=== PATIENT | male | born 1965 | race Caucasian/White ===

== ENCOUNTER 2020-08-14 19:24 | Inpatient (IN) | payer OTHER, SELFPAY ==
[2020-08-14] MEDS ORDERED: Acetaminophen 500 MG TAB ONE (20:15)
[2020-08-14 20:51] LABS: PTT 33.9 sec (22.9-36.1); Prothrombin Time 13.7 sec (12.0-14.7)
[2020-08-14] MEDS ORDERED: Ondansetron PF 4 MG/2 ML Vial IVP PRN (21:04)
[2020-08-14] MEDS ORDERED: Ondansetron ODT 4 MG TAB PO PRN (21:04)
[2020-08-14] MEDS ORDERED: hydrALAZINE 20 MG/ML VIAL SLOW IVP PRN (21:06)
[2020-08-14] MEDS ORDERED: Acetaminophen 325 MG TAB PO PRN (22:15)
[2020-08-14] MEDS: Lactated Ringer's 1,000 ML IV SCH (23:44)
[2020-08-15 03:11] VITALS: BMI 31.1
[2020-08-15 05:34] LABS: #Eosinphils 0.1 thou/uL (0.0-0.7); #Lymphocytes 2.2 thou/uL (1.20-3.40); #Monocytes 0.6 thou/uL (0.11-0.59); #Neutrophils 5.8 thou/uL (1.40-6.50); %Basophils 0.5 % (0.0-1.0); %Eosinophils 1.3 % (0.0-10.0); %Lymphocytes 25.3 % (21.0-51.0); %Neutrophils 65.9 % (42.0-75.0); Hemoglobin 13.1 g/dL (14.0-18.0); Mean Corpuscular HGB CONC 33.8 g/dL (32.0-36.0); Mean Corpuscular Hemoglobin 30.8 pg (27.0-31.0); Mean Platelet Volume 8.8 fL (7.4-10.4); Platelet Count 200 thou/uL (130-400); RBC Distribution Width 12.5 % (11.5-14.5); Red Blood Cell (RBC) Count 4.27 mill/uL (4.70-6.10); White Blood Cell (WBC) Count 8.8 thou/uL (4.8-10.8)
[2020-08-15] MEDS: Morphine 2 MG/ML VIAL SLOW IVP PRN ×2 (05:49→10:40)
[2020-08-15 05:58] LABS: Anion Gap 13 mmol/L (10-20); BUN (Urea Nitrogen) 12 mg/dL (8.4-25.7); Calc. Creatinine Clearance 138 mL/min (70-130); Calcium 8.7 mg/dL (7.8-10.44); Carbon Dioxide 26 mmol/L (22-29); Chloride 101 mmol/L (98-107); Glucose 91 mg/dL (70-105); Potassium 4.1 mmol/L (3.5-5.1); Sodium 136 mmol/L (136-145)
[2020-08-15] MEDS: Lactated Ringer's 1,000 ML IV SCH (07:50)
[2020-08-15 08:06] LABS: SARS-CoV-2 PCR by NAA Not Detected (NotDetected)
[2020-08-15] MEDS ORDERED: Lidocaine 1% (PF) 30 ML VIAL ONE (08:06)
[2020-08-15] MEDS ORDERED: Fentanyl 100 MCG/2 ML VIAL ONE (08:10)
[2020-08-15] MEDS ORDERED: Midazolam HCl 2 mg/2 ml Vial ONE (08:10)
[2020-08-15] MEDS: Famotidine/PF 20 mg/2ml Vial SLOW IVP SCH ×2 (09:42→19:59)
[2020-08-15] MEDS: Famotidine 20 MG TAB PO SCH ×2 (10:37→19:58)
[2020-08-15] MEDS ORDERED: Iopamidol 370 76% 50 ML VIAL FS ONE (12:49)
[2020-08-15] MEDS: Acetaminophen 325 MG TAB PO PRN (18:58)
[2020-08-15] MEDS ORDERED: FLU VACC QS2020-21(6MOS UP)/PF 60 MCG/0.5 ML SYRINGE IM ONE (21:00)
[2020-08-16] MEDS: Acetaminophen 325 MG TAB PO PRN (08:24)
[2020-08-16] MEDS: Famotidine 20 MG TAB PO SCH ×2 (08:24→19:53)
[2020-08-16] MEDS: Famotidine/PF 20 mg/2ml Vial SLOW IVP SCH ×2 (08:26→19:54)
[2020-08-16] MEDS ORDERED: CEFAZOLIN 2 GM in Premix Bag 1 BAG IVPB SCH (19:15)
[2020-08-17] MEDS: Famotidine/PF 20 mg/2ml Vial SLOW IVP SCH (07:50)
[2020-08-17] MEDS: Famotidine 20 MG TAB PO SCH (07:51)
[2020-08-17] MEDS ORDERED: Sodium Chloride 0.9% 1,000 ML IV SCH (08:00)
[2020-08-17] MEDS: Morphine 2 MG/ML VIAL SLOW IVP PRN (12:15)
[2020-08-17] MEDS ORDERED: Lidocaine 1% w/Epinephrine 1:100K 20 ML VIAL ONE (15:27)
[2020-08-17] MEDS ORDERED: Bupivacaine PF 0.5% 30 ML VIAL ONE (15:27)
[2020-08-17] MEDS ORDERED: Fentanyl 100 MCG/2 ML VIAL ONE ×2 (15:36→16:45)
[2020-08-17] MEDS ORDERED: Midazolam HCl 2 mg/2 ml Vial ONE (15:36)
[2020-08-17] MEDS ORDERED: HYDROmorphone 0.5 MG/0.5 ML SYRINGE ONE (15:37)
[2020-08-17] MEDS ORDERED: Dexamethasone 20 MG/5 ML VIAL ONE (15:45)
[2020-08-17] MEDS ORDERED: Lidocaine 1% PF 5 ML VIAL ONE (15:45)
[2020-08-17] MEDS ORDERED: Ondansetron PF 4 MG/2 ML Vial ONE (15:45)
[2020-08-17] MEDS ORDERED: PROPOFOL 200 MG/20 ML VIAL ONE (15:45)
[2020-08-17] MEDS ORDERED: HYDROcodone/Acetaminophen 5/325 mg Tablet PO PRN ×2 (16:37)
[2020-08-17] MEDS ORDERED: Ibuprofen 600 MG TAB PO PRN (16:37)
[2020-08-17] MEDS ORDERED: Promethazine HCl 25 MG/ML VIAL SLOW IVP PRN (16:41)
[2020-08-17] MEDS ORDERED: HYDROmorphone 2 MG/ML VIAL SLOW IVP PRN (16:41)
[2020-08-17] MEDS ORDERED: Ondansetron HCl/PF 4 MG/2 ML Vial IVP PRN (16:41)
[2020-08-17] MEDS ORDERED: Promethazine HCl 25 MG/ML VIAL IM PRN (16:41)
[2020-08-18] MEDS: Morphine 2 MG/ML VIAL SLOW IVP PRN (02:57)
[2020-08-18] MEDS: Acetaminophen 325 MG TAB PO PRN (03:48)
[2020-08-18 08:01] VITALS: BP 129/80; TEMP 97.5
== END 2020-08-18 09:30 | disposition home or self-care (01) | DRG 254 ==
LOC: ERS 19:24 → SURG A 20:51
PROVIDERS: ADMIT Internal Medicine; ATTEND Internal Medicine
PROC: 0JBL0ZZ Excision of Right Upper Leg Subcutaneous Tissue and Fascia, Open Approach (ICD-10-PCS; 2019-08-15)
PROC: 04LY3DZ Occlusion of Lower Artery with Intraluminal Device, Percutaneous Approach (ICD-10-PCS; principal; 2020-08-15)
PROC: B41D1ZZ Fluoroscopy of Aorta and Bilateral Lower Extremity Arteries using Low Osmolar Contrast (ICD-10-PCS; 2020-08-15)
DX: Q27.32 Arteriovenous malformation of vessel of lower limb (principal); I10 Essential (primary) hypertension; R58 Hemorrhage, not elsewhere classified; Z20.822 Contact with and (suspected) exposure to COVID-19; Z91.14 Patient's other noncompliance with medication regimen
CPT/HCPCS: 36247; 36415; 61626; 75630; 75710; 76942; 80048; 86850; 86900; 86901; 87635; 88305; 99152; 99153; 99284; J0690; J1100; J1170; J2001; J2250; J2270; J2405; J2704; J3010; Q9967; S0020; S0028; U0003; U0005